=== PATIENT | male | born 1975 | race Caucasian/White ===

== ENCOUNTER 2020-12-16 20:49 | Inpatient (IN) | payer OTHER ==
--- NOTE | 2020-12-16 21:06 | P.CRDCN ---
History of Present Illness History of present illness: HISTORY OF PRESENTING ILLNESS This is a pleasant 45-year-old with past medical history significant for diabetes mellitus type 2, family history of coronary artery disease, tobacco abuse and obesity. Patient denies any previous cardiac history. He states he had been in his usual state of health and then approximate 30 minutes prior to presentation he started developing substernal chest pain, radiating to his left shoulder, shortness breath and therefore presented to [facility]. Initial EKG showed anterolateral ST elevations V2 through V6, 1 and aVL with reciprocal changes. Patient was given aspirin, heparin, nitroglycerin and in fact his chest pain did completely resolve his EKG on transfer did appear improved. Patient was transferred to [facility] for heart catheterization and intervention. He did have a father who of a heart attack in his 50s. He does smoke "too much". He drinks occasional alcohol and no illicit drugs. REVIEW OF SYSTEMS At the time of my exam: CONSTITUTIONAL: Denies fever or chills. CARDIOVASCULAR: +chest pain, no shortness of breath, orthopnea, PND or palpitations. RESPIRATORY: Denies cough. GASTROINTESTINAL: Denies abdominal pain, diarrhea, constipation, nausea or vomiting. MUSCULOSKELETAL: Denies myalgias. NEUROLOGIC: Denies numbness, tingling or weakness. ENDOCRINE: Denies fatigue, weight change, polydipsia or polyurina. GENITOURINARY: Denies burning, hematuria or urgency with micturation. HEMATOLOGIC: Denies history of anemia or bleeding. PHYSICAL EXAMINATION Vital signs reviewed. CONSTITUTIONAL: No apparent distress, obese. HEENT: Head is normocephalic. Pupils are equal, round. Sclerae anicteric. Mucous membranes of the mouth are moist. No JVD. No carotid bruit. CHEST EXAMINATION: Lungs are clear to auscultation. No chest wall tenderness is noted on palpation or with deep breathing. HEART EXAMINATION: Regular rate and rhythm. S1, S2 heard. No murmurs, gallops or rub. ABDOMEN: Soft, nontender. Positive bowel sounds. EXTREMITIES: 2+ peripheral pulses, no lower extremity edema and no calf tenderne ss. NEUROLOGIC EXAMINATION: Patient is awake, alert and oriented x3. ASSESSMENT 1. Anterolateral STEMI, ST elevations have improved 2. Diabetes mellitus type 2 3. Hyperlipidemia 4. Tobacco abuse 5. Family history of coronary artery disease 6. Obesity PLAN Recommend left heart catheterization with possible PCI. Aspirin, heparin drip, check 2-D echo. Tobacco cessation. Past Medical History Past Medical History: No Reported History History of Any Multi-Drug Resistant Organisms: None Reported Past Surgical History: Orthopedic Surgery Past Psychological History: No Psychological Hx Reported Past Alcohol Use History: Occasional Past Drug Use History: None Reported Medications and Allergies Home Medications Medication Instructions Recorded Confirmed Type No Known Home Medications 02/29/16 02/29/16 History Allergies Allergy/AdvReac Type Severity Reaction Status Date / Time No Known Allergies Allergy Verified 02/29/16 13:27
[2020-12-16] MEDS: fentaNYL (PF) 50 MCG/ML 2 ML AMP IVP ONE ×3 (21:08→22:49)
[2020-12-16] MEDS: MIDAZOLAM 2 MG/2 ML VIAL IVP ONE ×2 (21:08→22:14)
[2020-12-16] MEDS ORDERED: fentaNYL (PF) 50 MCG/ML 2 ML AMP ONE ×2 (21:08→23:55)
[2020-12-16] MEDS ORDERED: LIDOCAINE 1% INJ 10MG/ML (20 ML MDV) SQ ONE (21:08)
[2020-12-16] MEDS ORDERED: VERAPAMIL SYRINGE (5 MG/10 ML) INTRAARTER ONE (21:11)
[2020-12-16] MEDS ORDERED: HEPARIN SODIUM 1,000 UN/ML (10ML VL) ONE (21:16)
[2020-12-16] MEDS: HEPARIN SODIUM 1,000 UN/ML (10ML VL) IV ONE ×5 (21:17→23:10)
[2020-12-16] MEDS ORDERED: IV FLUID CONTINUATION 1,000 ML IV ONE (21:18)
[2020-12-16] MEDS ORDERED: NITROGLYCERIN-D5W PMX 50 MG in DEXTROSE/WATER 1 250ML.BAG IV ONE (21:18)
[2020-12-16] MEDS ORDERED: PRASUGREL 10 MG TAB ONE ×2 (21:22)
[2020-12-16] MEDS ORDERED: PRASUGREL 10 MG TAB PO ONE (21:27)
[2020-12-16] MEDS: NITROGLYCERIN 1000MCG/10ML SYRINGE INTRACORON ONE ×3 (21:29→22:59)
[2020-12-16] MEDS ORDERED: IOPAMIDOL-370 125ML BTL INJ ONE ×3 (21:48→23:14)
[2020-12-16 22:07] LABS: Basophils # (A) 0.1 k/uL (0-0.2); Basophils % (A) 1 %; Eosinophils # (A) 0.3 k/uL (0-0.7); Eosinophils % (A) 3 %; HCT 45.4 % (39.0-53.0); HGB 16.1 gm/dL (13.0-17.5); Lymphocytes # (A) 1.6 k/uL (1.0-4.8); Lymphocytes % (A) 16 %; MCH 30.7 pg (25.0-35.0); MCHC 35.6 g/dL (31.0-37.0); MCV 86.3 fL (80.0-100.0); Monocytes # (A) 0.6 k/uL (0-1.0); Monocytes % (A) 6 %; Neutrophils # (A) 7.4 k/uL (1.3-7.7); Neutrophils % (A) 74 %; Platelet Count 258 k/uL (150-450); RBC 5.26 m/uL (4.30-5.90); RDW 12.7 % (11.5-15.5)
[2020-12-16 22:10] LABS: ALT 22 U/L (4-49); AST 25 U/L (17-59); African American GFR (CKD) >90 (>60 ml/min/1.73 sqM); Albumin 3.5 g/dL (3.5-5.0); Alkaline Phosphatase 71 U/L (38-126); Anion Gap 5 mmol/L; Blood Urea Nitrogen 12 mg/dL (9-20); Calcium 8.4 mg/dL (8.4-10.2); Carbon Dioxide 26 mmol/L (22-30); Chloride 100 mmol/L (98-107); Glucose 208 mg/dL (74-99); Non-African American GFR(CKD) >90 (>60 ml/min/1.73 sqM); Potassium 4.2 mmol/L (3.5-5.1); Sodium 131 mmol/L (137-145); Total Bilirubin 0.5 mg/dL (0.2-1.3); Total Protein 6.6 g/dL (6.3-8.2)
[2020-12-16 22:25] LABS: INR 1.1 (<1.2); Partial Thromboplastin Time 92.4 sec (22.0-30.0); Prothrombin Time 11.8 sec (9.0-12.0)
[2020-12-16] MEDS ORDERED: NITROGLYCERIN SL TABS 0.4 MG TAB SUBLINGUAL ONE ×2 (23:16→23:18)
[2020-12-16] MEDS ORDERED: hydrALAZINE HCL 20 MG/ML 1 ML VIAL ONE (23:21)
[2020-12-16] MEDS ORDERED: hydrALAZINE HCL 20 MG/ML 1 ML VIAL IV ONE ×2 (23:23)
--- NOTE | 2020-12-16 23:54 | P.PRCINT ---
Percutaneous Coronary Int. - Percutaneous Coronary Intervention Percutaneous Coronary Intervention: PROCEDURES PERFORMED: Left heart catheterization, bilateral coronary angiography, PCI of mid LAD with overlapping 3.5 x 15mm, 3.0 x 33mm Xience SANDRITA, post dilated with a 4.0 NC balloon. INDICATION: STEMI HISTORY: Patient is a pleasant 45-year-old male with history of hypertension, diabetes mellitus, obesity, tobacco abuse who presented to [facility] with chest pain and was found to have anterior lateral STEMI. He was transferred to [facility] for intervention. CONSENT:I have discussed the risks, benefits and alternative therapies for the above-mentioned procedure and for both sedation/analgesia as well as necessary blood product administration, if indicated, as they pertain to this patient. The patient has indicated understanding and acceptance of the risks and procedures discussed. PROCEDURE: After the risks, benefits and alternatives of the above mentioned procedure explained in detail with the patient, informed consent was obtained. Patient was taken to the catheterization lab and prepped and draped in usual fashion. 1% lidocaine was used to anesthetize the right radial artery. A 6- Colombian sheath was placed in the right radial artery using modified Seldinger technique. Left coronary angiography was performed with a 5-Colombian JL 3.5 catheter and right coronary angiography was performed with a 5-Colombian JR5 catheter in various views. A 5-Colombian FR5 catheter was inserted into the left ventricle and pressure measurements were obtained. The decision was made to intervene on the LAD. A 0.014 BMW wire was advanced into the distal LAD and then a second BMW into the diagonal 1 branch. Balloon angioplasty was performed with a 2.5 x 12 mm balloon to the diagonal 1 branch. There was still diffuse 90% stenosis despite 2 balloon angioplasties. Balloon angioplasty was performed of the LAD lesion with a 3.5 x 12 mm compliant and then 3.5 x 12 mm noncompliant balloon as there was some waist with the compliant balloon. There again was stenosis of the diagonal branch and therefore decision was made to perform to stent approach. A 2.5 x 15 mm Xience SANDRITA was placed at the origin of the diagonal 1 branch overlapping into the LAD. There was more distal disease of the diagonal branch and therefore an additional 2.0 x 22mm Industry stent was placed to the mid diagonal branch. The wire was then removed from the diagonal branch and the origin of the stent was crushed with a 3.5 x 12 mm noncompliant balloon. Next, the crushed stent was crossed with a 0.014 BMW wire and the origin of the stent was ballooned with a 2.0 mm balloon. Next a 3.5 x 15 mm Xience drug eluting stent was placed in the mid LAD. There was some waist and therefore a 4.0 x 8 mm balloon was used to post dilate the midportion of the stent. There was more distal dissection beyond the stent and therefore this was covered with a 3.0 x 28 mm Xience SANDRITA with excellent result. There was no flow noted in the diagonal 1 branch and therefore multiple times for made at wiring the diagonal branch again however unsuccessfully. Given contrast load, radiation dosage eventually the procedure was aborted as patient was doing well without any chest pain. Therefore the wires were pulled and final angiograms were performed. Per intervention there was 95% stenosis of the LAD with THOMAS 2- 3 flow and postintervention there was served percent stenosis and THOMAS-3 flow with no dissection. The diagonal branch was noted to be occluded however felt best treated medically with multiple attempts at preserving diagonal branch made. The right radial sheath was removed and a TR band was placed with hemostasis achieved. The patient tolerated the procedure well. Patient was transported back to the post catheterization holding area in stable condition. Conscious Sedation: Patient was monitored under the direct supervision of vision of myself for conscious sedation using Versed and fentanyl for a total duration of 126 minutes HEMODYNAMICS: LV: 156/2, LVEDP 11 Ao: 164/65 SELECTIVE CORONARY ARTERIOGRAPHY: LEFT MAIN: The left main is a large caliber vessel which bifurcates into the LAD and circumflex. There is no significant stenosis. LEFT ANTERIOR DESCENDING CORONARY ARTERY: LAD is a large caliber vessel which wraps around to the apex. There is a 95% mid LAD stenosis at the level of a small caliber diagonal 1 branch, involving the diagonal branch as well with 95% diagonal 1 stenosis as well. LEFT CIRCUMFLEX CORONARY ARTERY: Left circumflex is a large caliber vessel with mild luminal irregularities. RIGHT CORONARY ARTERY: The right coronary artery is a large caliber vessel which gives off a PDA and PLV branch and is the dominant vessel. There are mild luminal irregularities. FINAL IMPRESSION: 1. CAD as described above with PCI of mid LAD with overlapping 3.5 x 15mm, 3.0 x 33mm Xience SANDRITA, PCI of diagonal 2.5 x 15mm Xience and 2.0 x 22mm Robel SANDRITA. 2. Normal left sided pressures PLAN: 1. Aggressive risk factor modification per most recent ACC/AHA guidelines. 2. Continue dual antiplatelets for 12 months.
[2020-12-16] MEDS ORDERED: fentaNYL (PF) 50 MCG/ML 2 ML AMP IVP ONE (23:57)
[2020-12-16] MEDS ORDERED: MIDAZOLAM 2 MG/2 ML VIAL IVP ONE (23:57)
[2020-12-16] MEDS ORDERED: NITROGLYCERIN SL TABS 0.4 MG TAB SUBLINGUAL PRN (23:59)
[2020-12-16] MEDS ORDERED: MAG HYDROX/AL HYDROX/SIMETH 30 ML CUP PO PRN (23:59)
[2020-12-16] MEDS ORDERED: ZOLPIDEM 5 MG TAB PO PRN (23:59)
[2020-12-16] MEDS ORDERED: ATROPINE SULFATE 0.1 MG/ML 10ML SYRINGE IV PRN (23:59)
[2020-12-16] MEDS ORDERED: RX INFO: IV CONTRAST WAS GIVEN 1 EACH MISC MISCELLANE PRN (23:59)
[2020-12-17 00:40] LABS: Basophils # (A) 0.2 k/uL (0-0.2); Basophils % (A) 1 %; Eosinophils # (A) 0.3 k/uL (0-0.7); Eosinophils % (A) 2 %; HCT 51.6 % (39.0-53.0); HGB 17.4 gm/dL (13.0-17.5); Lymphocytes # (A) 5.3 k/uL (1.0-4.8); Lymphocytes % (A) 28 %; MCH 29.9 pg (25.0-35.0); MCHC 33.8 g/dL (31.0-37.0); MCV 88.5 fL (80.0-100.0); Mean Platelet Volume 6.9; Monocytes # (A) 1.1 k/uL (0-1.0); Monocytes % (A) 6 %; Neutrophils # (A) 11.8 k/uL (1.3-7.7); Neutrophils % (A) 62 %; Platelet Count 280 k/uL (150-450); RBC 5.83 m/uL (4.30-5.90); RDW 12.8 % (11.5-15.5)
[2020-12-17] MEDS ORDERED: LIDOCAINE 1% INJ 10MG/ML (20 ML MDV) ONE (00:40)
[2020-12-17] MEDS ORDERED: VERAPAMIL 2.5 MG/ML 2 ML AMP ONE (00:40)
--- NOTE | 2020-12-17 00:43 | P.PN ---
Progress Note - Text Progress note: Per report from nurse, patient had episode in ICU of VT and then Vfib with Code blue and received Amio, Epinephrine and defibrillation with ROSC. He currently denies any chest pain however he has been somewhat atypical describing his chest pain and cannot recall episode. His EKG shows persistent ST elevations however he had similar EKG at the end of PCI with inability to open a jailed diagonal branch. We will emergently bring patient back to [facility] for LHC. Prognosis guarded, continue BBlocker and Amiodarone drip. Nahum Ibarra, DO
--- NOTE | 2020-12-17 00:50 | P.HPIM ---
History of Present Illness H&P Date: 12/16/20 Chief Complaint: chest pain 45 year old male with obesity , DM, hyperlipidemia , and premature CAD in his father who of heart attack at age of 50 patient states he was at his baseline status of health up until today. when he suddenly experienced crushing central chest pain radiating to his left arm. associated with SOB, feeling nauseous , and diaphoretic within 30 min he was taken to [facility] , EKG showed STEMI V2 -V6 , patient has no personal history of CAD, but reports family history of premature CAD in his father who at age 50. patient risk factors, include smoking, obesity , DM, and family history patient symptoms improved after ASA, heparin and nitro. he was sent in here for intervention . left heart cath done through right radial artery access , and stents were inserted in mid LAD and diagonal patient otherwise denies any fever, chills, trauma to chest, abd pain , changes in his bowel or urinary habits, denies any gi bleeding Review of Systems Pertinent positives as noted in HPI. All other systems were reviewed and are negative Past Medical History Past Medical History: No Reported History History of Any Multi-Drug Resistant Organisms: None Reported Past Surgical History: Orthopedic Surgery Past Psychological History: No Psychological Hx Reported Past Alcohol Use History: Occasional Past Drug Use History: None Reported - Past Family History family Additional Family Medical History / Comment(s): premature CAD in his father at 50 of heart attack Medications and Allergies Home Medications Medication Instructions Recorded Confirmed Type No Known Home Medications 02/29/16 02/29/16 History Allergies Allergy/AdvReac Type Severity Reaction Status Date / Time No Known Allergies Allergy Verified 02/29/16 13:27 Physical Exam Vitals: Intake and Output 12/16/20 12/16/20 12/16/20 06:59 14:59 22:59 Other: Weight 123 kg Constitutional: No acute distress, conversant, pleasant Eyes: Anicteric sclerae, moist conjunctiva, Pupils equal round reactive to light ENMT: NC/AT Oropharynx clear, no erythema, or exudates Neck: Supple, FROM, no masses, or JVD No carotid bruits No thyromegaly Lungs: Clear to auscultation Clear to percussion Normal respiratory effort, no accessory muscle use Cardiovascular: Heart regular in rate and rhythm, No murmurs, gallops, or rubs No peripheral edema Abdominal: Soft Nontender, no guarding, rebound or rigidity Abdomen moving with respiration Normoactive bowel sounds No hepatomegaly, No splenomegaly No palpable mass No abdominal wall hernia noted Skin: Normal temperature, tone, texture, turgor No induration No subcutaneous nodules No rash, lesions No ulcers Extremities: No digital cyanosis No clubbing Pedal pulses intact and symmetrical Radial pulses intact and symmetrical No calf tenderness Psychiatric: Alert and oriented to person, place and time Appropriate affect fair judgement Neuro Muscles Strength 5/5 in all 4 extremities Sensation to light touch grossly present throughout Cranial nerves II-XII grossly intact No focal sensory deficits Lymphatics: no palpable cervical or supraclavicular , or inguinal lymph nodes Results CBC & Chem 7: 12/16/20 21:58 12/16/20 21:58 Assessment and Plan Assessment: STEMI s/p stents dual antiplatelets ICU care quit smoking monitor vital sings cardiac cath rn follow up labs statin , BB check echocardiogram cardiology following life style modification DM insulin sliding scale check A1C hyperlipidemia , statin Obesity life style modification CODE STATUS:full code DVT prophylaxis: heparin sc tid Discussed with: Patient, ER, RN Anticipated length of stay > than [address]: home A total of 60 minutes was spent on the care of this complex patient more than 50% of the time was spent in counseling and care coordination.
[2020-12-17] MEDS ORDERED: LIDOCAINE 1% INJ 10MG/ML (20 ML MDV) SQ ONE (00:51)
[2020-12-17] MEDS ORDERED: VERAPAMIL SYRINGE (5 MG/10 ML) INTRAARTER ONE (00:53)
--- NOTE | 2020-12-17 00:59 | P.EN ---
CODE blue note please refer to paper chart for exact details of sequence of events patient experience a cardiopulmonary arrest secondary to vfib. he was shocked twice, given epi and amiodarone bolus . successful ROSC achieved. cardiology notified and patient was rushed back to the cytogenetics laboratory manager patient was not intubated as he regained consciousness and was fully awake, following commands and answering questions appropriately . patient Jennifer was able to see the patient after the code in his room and was updated. I accompanied the patient to the cytogenetics laboratory manager. check labs, basic metabolic panel and magnesium normal saline bolus 1 L cardiology updated assessment , vfib cardiopulmonary arrest with successful ROSC STEMI s/p stents 30 minutes were spent in critical care time in the care of this complex patient
[2020-12-17 01:28] LABS: ALT 34 U/L (4-49); AST 44 U/L (17-59); African American GFR (CKD) >90 (>60 ml/min/1.73 sqM); Alkaline Phosphatase 85 U/L (38-126); Anion Gap 13 mmol/L; Blood Urea Nitrogen 12 mg/dL (9-20); Calcium 9.1 mg/dL (8.4-10.2); Carbon Dioxide 19 mmol/L (22-30); Chloride 103 mmol/L (98-107); Glucose 253 mg/dL (74-99); Magnesium 2.3 mg/dL (1.6-2.3); Non-African American GFR(CKD) >90 (>60 ml/min/1.73 sqM); Potassium 3.8 mmol/L (3.5-5.1); Sodium 135 mmol/L (137-145); Total Bilirubin 0.6 mg/dL (0.2-1.3); Total Protein 7.1 g/dL (6.3-8.2)
[2020-12-17] MEDS ORDERED: IV FLUID CONTINUATION 1,000 ML IV ONE (01:28)
[2020-12-17] MEDS ORDERED: IV FLUID CONTINUATION 200 ML IV ONE (01:30)
[2020-12-17] MEDS ORDERED: IOPAMIDOL-370 125ML BTL INJ ONE (01:35)
[2020-12-17] MEDS ORDERED: TIROFIBAN BOLUS 12.5MG/250 ML BAG IV ONE (01:40)
[2020-12-17] MEDS ORDERED: TIROFIBAN 12.5MG-250ML NS 250 ML IV ONE (01:44)
[2020-12-17] MEDS ORDERED: RX INFO: IV CONTRAST WAS GIVEN 1 EACH MISC MISCELLANE PRN (01:55)
--- NOTE | 2020-12-17 01:55 | P.PRCINT ---
Percutaneous Coronary Int. - Percutaneous Coronary Intervention Percutaneous Coronary Intervention: PROCEDURES PERFORMED: Bilateral coronary angiography, IVUS LAD, PCI of mid LAD with a 4.0 x 12 mm Xience SANDRITA INDICATION: VFib arrest HISTORY: Patient is a pleasant 45-year-old male with history of diabetes mellitus type II, hyperlipidemia, tobacco abuse with presented with chest pain and found to have anterior lateral STEMI and therefore was transferred from [facility] to [facility] patient underwent heart catheterization which showed bifurcation mid LAD and diagonal 95% stenosis 12/16/2020. He underwent angioplasty of the diagonal branch and eventual to stent approach with successful stenting of the LAD however the diagonal branch was compromised and unable to rewire despite multiple attempts. Therefore patient did have some lateral ST elevations throughout the case. He was transferred to ICU and unfortunately underwent ventricular tachycardia/V. fib arrest with successful brief CPR, epinephrine and cardioversion. Patient was not having any specific chest pain and stated he "felt fine" however recommended urgent catheterization to assess. CONSENT:I have discussed the risks, benefits and alternative therapies for the above-mentioned procedure and for both sedation/analgesia as well as necessary blood product administration, if indicated, as they pertain to this patient. The patient has indicated understanding and acceptance of the risks and procedures discussed. PROCEDURE: After the risks, benefits and alternatives of the above mentioned procedure explained in detail with the patient, informed consent was obtained. Patient was taken to the catheterization lab and prepped and draped in usual fashion. 1% lidocaine was used to anesthetize the left radial artery. A 6- Somali sheath was placed in the right radial artery using modified Seldinger technique. Left coronary angiography was performed with a 5-Somali JL4.0 catheter and right coronary angiography was performed with a 5-Somali JR5 catheter in various views. The LAD stent was noted to be occluded and therefore intervention was recommended. The left main was engaged with a 6-Somali CLS 4.0 catheter. A 0.014 BMW wire was used to cross the lesion and placed in the distal LAD. The stent was predilated with a 3.0 balloon. Next IVUS was performed which showed very mild stent malposition of the mid to distal LAD stent and questionable small proximal edge dissection. Therefore a 4.0 x 12 mm Xience SANDRITA was placed proximally. The remainder of the stent was postdilated with a 3.5 x 12 mm noncompliant balloon. Post angioplasty and stenting IVUS was performed which showed excellent stent apposition without any dissection. Preintervention there was 99% stenosis with THOMAS 0 flow and post intervention there was 0% stenosis and THOMAS 3 flow. The left radial sheath was removed and a TR band was placed with hemostasis achieved. The patient tolerated the procedure well. Patient was transported back to the post catheterization holding area in stable condition. Conscious Sedation: Patient was monitored under the direct supervision of vision of myself for conscious sedation using Versed and fentanyl for a total duration of 48 minutes HEMODYNAMICS: Ao 146/78 SELECTIVE CORONARY ARTERIOGRAPHY: LEFT MAIN: The left main is a large caliber vessel which bifurcates into the LAD and circumflex. There is no significant stenosis. LEFT ANTERIOR DESCENDING CORONARY ARTERY: LAD is a large caliber vessel which wraps around to the apex. There is a long mid LAD stent with instent thrombosis resulting in 99% stenosis. The diagonal 1 stent is 100% occluded. LEFT CIRCUMFLEX CORONARY ARTERY: Left circumflex is a large caliber vessel. There are mild luminal irregularities. RIGHT CORONARY ARTERY: The right coronary artery is a large caliber vessel which gives off a PDA and PLV branch and is the dominant vessel. There are mild luminal irregularities. FINAL IMPRESSION: 1. Acute LAD stent thrombosis s/p successful PCI of proximal edge of mid LAD stent with a 4.0 x 12mm Xience SANDRITA PLAN: 1. Aggressive risk factor modification per most recent ACC/AHA guidelines. 2. Continue dual antiplatelets for 12 months. 3. Aggrastat drip for 12 hrs, amiodarone drip, BBlocker.
[2020-12-17] MEDS ORDERED: AMIODARONE 360 MG in DEXTROSE 5% IN WATER 200 ML IV ONE ×2 (02:00)
[2020-12-17 02:05] LABS: Glucose,Whole Blood 230 mg/dL (75-99)
[2020-12-17] MEDS: SODIUM CHLORIDE 0.9% 1,000 ML IV SCH ×2 (02:45→20:24)
[2020-12-17] MEDS: TIROFIBAN 12.5MG-250ML NS 250 ML IV SCH ×2 (02:46→10:15)
[2020-12-17] MEDS: METOPROLOL TARTRATE 25 MG TAB PO SCH ×3 (03:08→20:24)
[2020-12-17] MEDS ORDERED: MORPHINE SULFATE 4 MG/ML SYRINGE IVP PRN (04:46)
[2020-12-17 05:15] LABS: Basophils # (A) 0.1 k/uL (0-0.2); Basophils % (A) 0 %; Eosinophils # (A) 0.1 k/uL (0-0.7); Eosinophils % (A) 1 %; HCT 48.8 % (39.0-53.0); HGB 16.3 gm/dL (13.0-17.5); Lymphocytes # (A) 1.9 k/uL (1.0-4.8); Lymphocytes % (A) 11 %; MCH 28.9 pg (25.0-35.0); MCHC 33.3 g/dL (31.0-37.0); MCV 86.9 fL (80.0-100.0); Mean Platelet Volume 6.9; Monocytes # (A) 0.7 k/uL (0-1.0); Monocytes % (A) 4 %; Neutrophils # (A) 14.6 k/uL (1.3-7.7); Neutrophils % (A) 84 %; Platelet Count 304 k/uL (150-450); RBC 5.62 m/uL (4.30-5.90); RDW 13.4 % (11.5-15.5); WBC 17.5 k/uL (3.8-10.6)
[2020-12-17 05:29] LABS: African American GFR (CKD) >90 (>60 ml/min/1.73 sqM); Anion Gap 8 mmol/L; Blood Urea Nitrogen 9 mg/dL (9-20); Calcium 8.9 mg/dL (8.4-10.2); Carbon Dioxide 24 mmol/L (22-30); Chloride 103 mmol/L (98-107); Glucose 224 mg/dL (74-99); Non-African American GFR(CKD) >90 (>60 ml/min/1.73 sqM); Potassium 4.3 mmol/L (3.5-5.1); Sodium 135 mmol/L (137-145)
--- NOTE | 2020-12-17 06:42 | XR ---
EXAMINATION TYPE: XR chest 1V portable DATE OF EXAM: 12/17/2020 COMPARISON: 02/29/2016 HISTORY: Post-CPR TECHNIQUE: Single frontal view of the chest is obtained. FINDINGS: There is diffuse mild interstitial opacity possibly reflecting mild interstitial edema. The re is no consolidative or masslike opacity. There is no pleural effusion or pneumothorax. Heart size is normal. The mediastinum and hilum are unr emarkable. The osseous structures are intact. IMPRESSION: Mild interstitial prominence which possibly reflects mild interstitial edema. Clinical correlation fo llow-up is recommended..
[2020-12-17 07:07] LABS: Glucose,Whole Blood 175 mg/dL (75-99)
[2020-12-17] MEDS: INSULIN ASPART (NovoLOG) 100 UNIT/ML VIAL SQ SCH ×4 (07:07→20:24)
[2020-12-17] MEDS: AMIODARONE 450 MG in DEXTROSE 5% IN WATER 250 ML IV SCH ×4 (08:42→23:04)
[2020-12-17] MEDS: PRASUGREL 10 MG TAB PO SCH (10:12)
[2020-12-17] MEDS: ASPIRIN 81 MG PO SCH (10:12)
[2020-12-17] MEDS: HEPARIN SODIUM,PORCINE/PF 5,000 UNIT/0.5 ML SYRINGE SQ SCH ×2 (10:12→20:24)
[2020-12-17 11:15] LABS: Glucose,Whole Blood 203 mg/dL (75-99)
--- NOTE | 2020-12-17 11:59 | ECHOF ---
Referral Reason:STEMI, V fib MEASUREMENTS -------- HEIGHT: 167.6 cm WEIGHT: 122.9 kg BP: IVSd: 1.0 cm (0.6 - 1.1) LVIDd: 4.8 cm (3.9 - 5.3) LVPWd: 1.1 cm (0.6 - 1.1) IVSs: 0.9 cm LVIDs: 3.8 cm LVPWs: 1.0 cm LAESV Index (A-L): 16.07 ml/m Ao Diam: 3.1 cm (2.0 - 3.7) AV Cusp: 1.7 cm (1.5 - 2.6) LA Diam: 4.1 cm (2.7 - 3.8) MV EXCURSION: 23.970 mm (> 18.000) MV EF SLOPE: 133 mm/s (70 - 150) EPSS: 1.7 cm MV E Hernan: 0.93 m/s MV DecT: 199 ms MV A Hernan: 1.09 m/s MV E/A Ratio: 0.85 RAP: 5.00 mmHg RVSP: 10.09 mmHg FINDINGS -------- This was a technically difficult study with suboptimal views. The left ventricular size is normal. Left ventricular wall thickness is normal. Overall left vent ricular systolic function is moderately impaired with, an EF between 35 - 40 %. Normal LAP Grade 1 Diastolic Dysfunction. Apical anterior LV wall motion is hypokinetic. Apical lateral LV wall mot ion is hypokinetic. Apical inferior LV wall motion is hypokinetic. Apical septum LV wall motion is hypokinetic. The right ventricle is normal in size. Normal LA size by volume 22+/-6 ml/m2. The right atrial size is normal. Lumason used The aortic valve was not well visualized. The mitral valve is normal. Mild mitral regurgitation is present. The tricuspid valve appears structurally normal. Trace tricuspid regurgitation present. Right neftaly tricular systolic pressure is normal at < 35 mmHg. There is no pulmonic regurgitation present. The aortic root size is normal. IVC Not well visulized. There is no pericardial effusion. CONCLUSIONS -------- 1. The left ventricular size is normal. 2. Left ventricular wall thickness is normal. 3. Overall left ventricular systolic function is moderately impaired with, an EF between 35 - 40 %. 4. Normal LAP Grade 1 Diastolic Dysfunction. 5. Apical anterior LV wall motion is hypokinetic. 6. Apical lateral LV wall motion is hypokinetic. 7. Apical inferior LV wall motion is hypokinetic. 8. Apical septum LV wall motion is hypokinetic. 9. Mild mitral regurgitation is present. 10. Trace tricuspid regurgitation present. 11. There is no pericardial effusion. FUEL QUALITY TECH: Jen Bateman RDCS
--- NOTE | 2020-12-17 12:09 | P.PN ---
Subjective Progress Note Date: 12/17/20 Principal diagnosis: chest pain Bennett is a 45 yo male DM, HLD, and obesity who presented from [facility] due to STEMI in V2-V6. 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 He was transferred to the ICU and had a V fib arrest shocked X 2, and epi with ROSC. He was started on amio gtt and taken back to the slab miller operator where he was noted to have acute instent thrombosis and was started on aggrastat. He return to the ICU and amio gtt was continued. Of note patient does not have insurance as he is selft employed. He has been getting his metformin from urgent care. Patient seen and examined at bedside. He reports pain with movement in his ch est. No shrotness of breath, no pain withdeep inspiration. Blood sugar at home 120-150. General: non toxic, no distress, appears at stated age, Obese Derm: warm, dry Head: atraumatic, normocephalic, symmetric Eyes: EOMI, no lid lag, anicteric sclera Mouth: no lip lesion, mucus membranes moist Cardiovascular: S1S2 reg, no murmur, positive posterior tibial pulse bilateral, Lungs: Decreased bs bilateral, no rhonchi, no rales , no accessory muscle use Abdominal: soft, nontender to palpation, no guarding, no appreciable organomegaly Ext: no gross muscle atrophy, no edema, no contractures Neuro: CN II-XI grossly intact, no focal neuro deficits Psych: Alert, oriented, appropriate affect ST segment elevated myocardial infarction status post PCI to the LAD, in-stent thrombosis, V. fib arrest - On Aggrastat -Amiodarone -Metoprolol, lisinopril start in a.m. -Aspirin -Effient -Statin Diabetes mellitus type 2, well controlled on metformin -Hold metformin due to recent contrast dye -Sliding-scale insulin -Check an A1c HTN - follow BP - start lisinopril in AM - metoprolol Dyslipidemia -Statin -Check lipid profile Leukocytosis - likely reactive - repeat CBC in AM Obesity with BMI 43.8 -Structured outpatient weight loss DVT prophylaxis: heparin Discussed with: Patient, nursing Anticipated discharge: 3-[address]: home A total of 35 minutes was spent on the care of this complex patient more than 50% of the time was spent in counseling and care coordination. Objective - Vital Signs Vital signs: Vital Signs Temp 97.9 F 12/17/20 08:00 Pulse 69 12/17/20 11:00 Resp 13 12/17/20 11:00 BP 163/88 12/17/20 11:00 Pulse Ox 94 L 12/17/20 11:00 Intake & Output 12/16/20 12/17/20 12/17/20 18:59 06:59 18:59 Intake Total 735 605 Output Total 1400 500 Balance -665 105 Weight 123.1 kg Intake: IV 735 375 .9 400 375 Oral 230 Output: Urine 1400 500 Other: Voiding Method Urinal # Voids 1 1 - Labs CBC & Chem 7: 12/17/20 04:54 12/17/20 04:54 Labs: Abnormal Lab Results - Last 24 Hours (Table) 12/16/20 12/16/20 12/16/20 Range/Units 21:58 21:58 21:58 WBC (3.8-10.6) k/uL Neutrophils # (1.3-7.7) k/uL Lymphocytes # (1.0-4.8) k/uL Monocytes # (0-1.0) k/uL APTT 92.4 H (22.0-30.0) sec Sodium 131 L (137-145) mmol/L Carbon Dioxide (22-30) mmol/L Creatinine (0.66-1.25) mg/dL Glucose 208 H (74-99) mg/dL POC Glucose (mg/dL) (75-99) mg/dL Troponin I 0.677 H* (0.000-0.034) ng/mL 12/17/20 12/17/20 12/17/20 Range/Units 00:30 00:30 02:04 WBC 19.0 H (3.8-10.6) k/uL Neutrophils # 11.8 H (1.3-7.7) k/uL Lymphocytes # 5.3 H (1.0-4.8) k/uL Monocytes # 1.1 H (0-1.0) k/uL APTT (22.0-30.0) sec Sodium 135 L (137-145) mmol/L Carbon Dioxide 19 L (22-30) mmol/L Creatinine (0.66-1.25) mg/dL Glucose 253 H (74-99) mg/dL POC Glucose (mg/dL) 230 H (75-99) mg/dL Troponin I (0.000-0.034) ng/mL 12/17/20 12/17/20 12/17/20 Range/Units 04:54 04:54 04:54 WBC 17.5 H (3.8-10.6) k/uL Neutrophils # 14.6 H (1.3-7.7) k/uL Lymphocytes # (1.0-4.8) k/uL Monocytes # (0-1.0) k/uL APTT (22.0-30.0) sec Sodium 135 L (137-145) mmol/L Carbon Dioxide (22-30) mmol/L Creatinine 0.60 L (0.66-1.25) mg/dL Glucose 224 H (74-99) mg/dL POC Glucose (mg/dL) (75-99) mg/dL Troponin I 2.110 H* (0.000-0.034) ng/mL 12/17/20 12/17/20 Range/Units 07:05 11:14 WBC (3.8-10.6) k/uL Neutrophils # (1.3-7.7) k/uL Lymphocytes # (1.0-4.8) k/uL Monocytes # (0-1.0) k/uL APTT (22.0-30.0) sec Sodium (137-145) mmol/L Carbon Dioxide (22-30) mmol/L Creatinine (0.66-1.25) mg/dL Glucose (74-99) mg/dL POC Glucose (mg/dL) 175 H 203 H (75-99) mg/dL Troponin I (0.000-0.034) ng/mL
[2020-12-17 12:22] VITALS: BMI 43.8
[2020-12-17 14:50] LABS: Hemoglobin A1C 7.8 % (4.0-6.0)
--- NOTE | 2020-12-17 15:56 | P.PN ---
Subjective Progress Note Date: 12/17/20 This patient was admitted with acute anterior wall myocardial infarction. Had cardiac catheterization and stent placement of the LAD. That seemed to a bifurcating lesion of the diagonal but subsequently patient had a cardiac arrest with ventricular tachycardia and fibrillation. He required CPR and cardi oversion and epinephrine. Subsequent cardiac catheterization showed acute thrombosis of the stent. Patient had repeat intervention. Patient is alert and oriented. Doesn't appear to be in acute distress. Patient had procedure from the both wrists. Puncture site seemed to be stable. Lungs are clear. Heart is regular. He is on IV amiodarone drip. His echo Cardigan showed an ejection fraction of 35-40%. Anteroapical hypokinesia noted and anteroseptal. We'll continue current medical therapy with beta blockers, SAVANNAH inhibitor. I will add small dose of Aldactone. Increase activity as tolerated. Further recommendations depend upon clinical course. May require LifeVest before discharge. Also may continue by mouth amiodarone Objective - Vital Signs Vital signs: Vital Signs Temp 97.9 F 12/17/20 08:00 Pulse 69 12/17/20 11:00 Resp 13 12/17/20 11:00 BP 163/88 12/17/20 11:00 Pulse Ox 94 L 12/17/20 11:00 Intake & Output 12/16/20 12/17/20 12/17/20 18:59 06:59 18:59 Intake Total 735 605 Output Total 1400 500 Balance -665 105 Weight 123.1 kg 123.1 kg Intake: IV 735 375 .9 400 375 Oral 230 Output: Urine 1400 500 Other: Voiding Method Urinal # Voids 1 1 - Exam GENERAL EXAM: Patient is alert and oriented and doesn't appear to be in any acute distress HEENT: Normocephalic. Normal reaction of pupils, equal size, normal range of extraocular motion. No erythema or exudates in the throat. NECK: No masses, no nuchal rigidity. CHEST: No chest wall deformity. LUNGS: Equal air entry with no crackles or wheeze. HEART: S1 and S2 normal with no audible mumurs or gallops. Regular rhythm, femorals equal on both sides.. ABDOMEN: No hepatosplenomegaly, normal bowel sounds, no guarding or rigidity. SKIN: No rashes CENTRAL NERVOUS SYSTEM: No focal deficits. EXTREMITIES: No cyanosis, clubbing or edema. - Labs CBC & Chem 7: 12/17/20 04:54 12/17/20 04:54 Labs: Abnormal Lab Results - Last 24 Hours (Table) 12/16/20 12/16/20 12/16/20 Range/Units 21:58 21:58 21:58 WBC (3.8-10.6) k/uL Neutrophils # (1.3-7.7) k/uL Lymphocytes # (1.0-4.8) k/uL Monocytes # (0-1.0) k/uL APTT 92.4 H (22.0-30.0) sec Sodium 131 L (137-145) mmol/L Carbon Dioxide (22-30) mmol/L Creatinine (0.66-1.25) mg/dL Glucose 208 H (74-99) mg/dL POC Glucose (mg/dL) (75-99) mg/dL Hemoglobin A1c (4.0-6.0) % Troponin I 0.677 H* (0.000-0.034) ng/mL 12/17/20 12/17/20 12/17/20 Range/Units 00:30 00:30 02:04 WBC 19.0 H (3.8-10.6) k/uL Neutrophils # 11.8 H (1.3-7.7) k/uL Lymphocytes # 5.3 H (1.0-4.8) k/uL Monocytes # 1.1 H (0-1.0) k/uL APTT (22.0-30.0) sec Sodium 135 L (137-145) mmol/L Carbon Dioxide 19 L (22-30) mmol/L Creatinine (0.66-1.25) mg/dL Glucose 253 H (74-99) mg/dL POC Glucose (mg/dL) 230 H (75-99) mg/dL Hemoglobin A1c (4.0-6.0) % Troponin I (0.000-0.034) ng/mL 12/17/20 12/17/20 12/17/20 Range/Units 04:54 04:54 04:54 WBC 17.5 H (3.8-10.6) k/uL Neutrophils # 14.6 H (1.3-7.7) k/uL Lymphocytes # (1.0-4.8) k/uL Monocytes # (0-1.0) k/uL APTT (22.0-30.0) sec Sodium 135 L (137-145) mmol/L Carbon Dioxide (22-30) mmol/L Creatinine 0.60 L (0.66-1.25) mg/dL Glucose 224 H (74-99) mg/dL POC Glucose (mg/dL) (75-99) mg/dL Hemoglobin A1c 7.8 H (4.0-6.0) % Troponin I (0.000-0.034) ng/mL 12/17/20 12/17/20 12/17/20 Range/Units 04:54 07:05 11:14 WBC (3.8-10.6) k/uL Neutrophils # (1.3-7.7) k/uL Lymphocytes # (1.0-4.8) k/uL Monocytes # (0-1.0) k/uL APTT (22.0-30.0) sec Sodium (137-145) mmol/L Carbon Dioxide (22-30) mmol/L Creatinine (0.66-1.25) mg/dL Glucose (74-99) mg/dL POC Glucose (mg/dL) 175 H 203 H (75-99) mg/dL Hemoglobin A1c (4.0-6.0) % Troponin I 2.110 H* (0.000-0.034) ng/mL Assessment and Plan (1) Cardiac arrest Current Visit: Yes Status: Acute Code(s): I46.9 - CARDIAC ARREST, CAUSE UNSPECIFIED SNOMED Code(s): 673370950 (2) STEMI (ST elevation myocardial infarction) Current Visit: Yes Status: Acute Code(s): I21.3 - ST ELEVATION (STEMI) MYOCARDIAL INFARCTION OF [facility] SITE SNOMED Code(s): 57227761 (3) Coronary stent thrombosis Current Visit: Yes Status: Acute Code(s): T82.867A - THROMBOSIS DUE TO CARDIAC PROSTH DEV/GRFT, INITIAL ENCOUNTER SNOMED Code(s): 867039708 (4) Cardiomyopathy Current Visit: Yes Status: Acute Code(s): I42.9 - CARDIOMYOPATHY, UNSPECIFIED SNOMED Code(s): 43147645 Plan: Continue current medical therapy. Start her small dose of Aldactone. Increase activity. Further recommendations depend upon clinical course
[2020-12-17] MEDS: HYDROcodone/APAP 5-325MG 1 EACH TAB PO PRN (16:22)
[2020-12-17 16:46] LABS: Glucose,Whole Blood 222 mg/dL (75-99)
[2020-12-17 20:21] LABS: Glucose,Whole Blood 199 mg/dL (75-99)
[2020-12-17] MEDS: ATORVASTATIN 80 MG TAB PO SCH (20:24)
[2020-12-18] MEDS: SODIUM CHLORIDE 0.9% 1,000 ML IV SCH (03:01)
[2020-12-18 04:05] LABS: HCT 47.8 % (39.0-53.0); HGB 16.1 gm/dL (13.0-17.5); MCH 29.3 pg (25.0-35.0); MCHC 33.6 g/dL (31.0-37.0); MCV 87.2 fL (80.0-100.0); Mean Platelet Volume 7.1; Platelet Count 260 k/uL (150-450); RBC 5.49 m/uL (4.30-5.90); RDW 12.9 % (11.5-15.5); WBC 14.7 k/uL (3.8-10.6)
[2020-12-18 04:20] LABS: African American GFR (CKD) >90 (>60 ml/min/1.73 sqM); Anion Gap 4 mmol/L; Blood Urea Nitrogen 7 mg/dL (9-20); Calcium 8.9 mg/dL (8.4-10.2); Carbon Dioxide 27 mmol/L (22-30); Chloride 103 mmol/L (98-107); Cholesterol 186 mg/dL (<200); Glucose 165 mg/dL (74-99); HDL Cholesterol 35 mg/dL (40-60); LDL Cholesterol,Calculated 118 mg/dL (0-99); Non-African American GFR(CKD) >90 (>60 ml/min/1.73 sqM); Potassium 4.4 mmol/L (3.5-5.1); Sodium 134 mmol/L (137-145); Triglycerides 167 mg/dL (<150)
[2020-12-18 06:47] LABS: Glucose,Whole Blood 171 mg/dL (75-99)
[2020-12-18] MEDS: INSULIN ASPART (NovoLOG) 100 UNIT/ML VIAL SQ SCH ×4 (06:51→21:01)
[2020-12-18] MEDS: ASPIRIN 81 MG PO SCH (08:59)
[2020-12-18] MEDS: HEPARIN SODIUM,PORCINE/PF 5,000 UNIT/0.5 ML SYRINGE SQ SCH ×2 (08:59→21:00)
[2020-12-18] MEDS: PRASUGREL 10 MG TAB PO SCH (09:00)
[2020-12-18] MEDS: METOPROLOL TARTRATE 50 MG TAB PO SCH ×2 (09:00→21:00)
[2020-12-18] MEDS: lisinopriL 10 MG TAB PO SCH (09:00)
[2020-12-18] MEDS: SPIRONOLACTONE 25 MG TAB PO SCH (09:00)
[2020-12-18] MEDS ORDERED: lisinopriL 5 MG TAB PO SCH (09:00)
[2020-12-18] MEDS: HYDROcodone/APAP 5-325MG 1 EACH TAB PO PRN (09:13)
[2020-12-18 11:59] LABS: Glucose,Whole Blood 168 mg/dL (75-99)
--- NOTE | 2020-12-18 14:35 | P.PN ---
Subjective Progress Note Date: 12/18/20 (dleayed charting seen at 1030) Principal diagnosis: chest pain Bennett is a 45 yo male DM, HLD, and obesity who presented from [facility] due to STEMI in V2-V6. 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 He was transferred to the ICU and had a V fib arrest shocked X 2, and epi with ROSC. He was started on amio gtt and taken back to the cath l ab where he was noted to have acute in stent thrombosis and was started on aggrastat. He return to the ICU and amio gtt was continued. He continue to do well and complete the amio gtt and aggrastat. His echo showed diffuse hypokinesis with EF 35-40% and he was started on metoprolol, lisinopril, and aldactone. Of note patient does not have insurance as he is selft employed. He has been getting his metformin from urgent care. Patient seen and examined at bedside. He continues to have pain with movement in his chest, continues to have some pain with coughing, states he is now starting to break up some black and green stuff from his lungs now that he has been away from smoking. He denies any overt chest discomfort. He denies any shortness of breath. No nausea or vomiting though his appetite is poor. General: non toxic, no distress, appears at stated age, Obese Derm: warm, dry Head: atraumatic, normocephalic, symmetric Eyes: EOMI, no lid lag, anicteric sclera Mouth: no lip lesion, mucus membranes moist Cardiovascular: S1S2 reg, no murmur, positive posterior tibial pulse bilateral, Lungs: Decreased bs bilateral, no rhonchi, no rales , no accessory muscle use Abdominal: soft, nontender to palpation, no guarding, no appreciable organomegaly Ext: no gross muscle atrophy, trace edema, no contractures Neuro: CN II-XI grossly intact, no focal neuro deficits Psych: Alert, oriented, appropriate affect ST segment elevated myocardial infarction status post PCI to the LAD, in-stent thrombosis, V. fib arrest, ischemic cardiomyopathy - Status post Aggrastat and Amiodarone infusions -Metoprolol, lisinopril, Aldactone -Aspirin -Effient -Statin -Cardiology recs: May need LifeVest Diabetes mellitus type 2, well controlled on metformin -Hold metformin due to recent contrast dye -Sliding-scale insulin -A1c 7.8 HTN - follow BP - Lisinopril - metoprolol Dyslipidemia -Statin Leukocytosis, down trending - likely reactive - repeat CBC in AM Obesity with BMI 43.8 -Structured outpatient weight loss Social stressors - no insurance DVT prophylaxis: heparin Discussed with: Patient, nursing Anticipated discharge: [address]: home A total of 35 minutes was spent on the care of this complex patient more than 50% of the time was spent in counseling and care coordination. Objective - Vital Signs Vital signs: Vital Signs Temp 99.5 F 12/18/20 13:00 Pulse 84 12/18/20 13:00 Resp 18 12/18/20 13:00 BP 140/84 12/18/20 13:00 Pulse Ox 96 12/18/20 13:00 Intake & Output 12/17/20 12/18/20 12/18/20 18:59 06:59 18:59 Intake Total 1130 1139.449 225 Output Total 1000 600 200 Balance 130 539.449 25 Weight 123.1 kg 121.5 kg Intake: IV 900 900 225 .9 900 900 225 Intake, IV Titration 239.449 Amount Amiodarone 450 mg In 239.449 Dextrose 5% in Water 250 ml @ 0.5 MG/MIN 16.667 mls/hr IV .Q15H [facility] Rx#: [id number] Oral 230 Output: Urine 1000 600 200 Other: Voiding Method Toilet Toilet Toilet # Voids 1 1 1 # Bowel Movements 1 1 - Labs CBC & Chem 7: 12/18/20 02:55 12/18/20 02:55 Labs: Abnormal Lab Results - Last 24 Hours (Table) 12/17/20 12/17/20 12/17/20 Range/Units 04:54 16:44 20:20 WBC (3.8-10.6) k/uL Sodium (137-145) mmol/L BUN (9-20) mg/dL Glucose (74-99) mg/dL POC Glucose (mg/dL) 222 H 199 H (75-99) mg/dL Hemoglobin A1c 7.8 H (4.0-6.0) % Triglycerides (<150) mg/dL LDL Cholesterol, Calc (0-99) mg/dL HDL Cholesterol (40-60) mg/dL 12/18/20 12/18/20 12/18/20 Range/Units 02:55 02:55 06:46 WBC 14.7 H (3.8-10.6) k/uL Sodium 134 L (137-145) mmol/L BUN 7 L (9-20) mg/dL Glucose 165 H (74-99) mg/dL POC Glucose (mg/dL) 171 H (75-99) mg/dL Hemoglobin A1c (4.0-6.0) % Triglycerides 167 H (<150) mg/dL LDL Cholesterol, Calc 118 H (0-99) mg/dL HDL Cholesterol 35 L (40-60) mg/dL 12/18/20 Range/Units 11:48 WBC (3.8-10.6) k/uL Sodium (137-145) mmol/L BUN (9-20) mg/dL Glucose (74-99) mg/dL POC Glucose (mg/dL) 168 H (75-99) mg/dL Hemoglobin A1c (4.0-6.0) % Triglycerides (<150) mg/dL LDL Cholesterol, Calc (0-99) mg/dL HDL Cholesterol (40-60) mg/dL
[2020-12-18 17:02] LABS: Glucose,Whole Blood 153 mg/dL (75-99)
--- NOTE | 2020-12-18 18:35 | P.PN ---
Subjective Progress Note Date: 12/18/20 This patient was admitted with acute anterior wall myocardial infarction. Had cardiac catheterization and stent placement of the LAD. That seemed to a bifurcating lesion of the diagonal but subsequently patient had a cardiac arrest with ventricular tachycardia and fibrillation. He required CPR and cardi oversion and epinephrine. Subsequent cardiac catheterization showed acute thrombosis of the stent. Patient had repeat intervention. Patient is alert and oriented. Doesn't appear to be in acute distress. Patient had procedure from the both wrists. Puncture site seemed to be stable. Lungs are clear. Heart is regular. He is on IV amiodarone drip. His echo Cardigan showed an ejection fraction of 35-40%. Anteroapical hypokinesia noted and anteroseptal. We'll continue current medical therapy with beta blockers, SAVANNAH inhibitor. I will add small dose of Aldactone. Increase activity as tolerated. Further recommendations depend upon clinical course. May require LifeVest before discharge. Also may continue by mouth amiodarone. 12/18/2020:. Patient seemed to be stable since yesterday. No arrhythmias. No complains of any chest pain or shortness of breath. The dose of the beta blo cker was increased. His blood pressure is better controlled. Lungs are clear. Heart is regular. Patient is being transferred to telemetry unit. Patient to be constricted for LifeVest. If stable, patient could be discharged home tomorrow after he has his LifeVest arrangements are made. Follow-up with Dr. Ibarra Objective - Vital Signs Vital signs: Vital Signs Temp 98.6 F 12/18/20 16:15 Pulse 81 12/18/20 16:15 Resp 16 12/18/20 16:15 BP 123/62 12/18/20 16:15 Pulse Ox 96 12/18/20 16:15 Intake & Output 12/17/20 12/18/20 12/18/20 18:59 06:59 18:59 Intake Total 1130 1139.449 343 Output Total 1000 600 200 Balance 130 539.449 143 Weight 123.1 kg 121.5 kg Intake: IV 900 900 225 .9 900 900 225 Intake, IV Titration 239.449 Amount Amiodarone 450 mg In 239.449 Dextrose 5% in Water 250 ml @ 0.5 MG/MIN 16.667 mls/hr IV .Q15H [facility] Rx#: [id number] Oral 230 118 Output: Urine 1000 600 200 Other: Voiding Method Toilet Toilet Toilet # Voids 1 1 1 # Bowel Movements 1 1 - Exam GENERAL EXAM: Patient is alert and oriented and doesn't appear to be in any acute distress HEENT: Normocephalic. Normal reaction of pupils, equal size, normal range of extraocular motion. No erythema or exudates in the throat. NECK: No masses, no nuchal rigidity. CHEST: No chest wall deformity. LUNGS: Equal air entry with no crackles or wheeze. HEART: S1 and S2 normal with no audible mumurs or gallops. Regular rhythm, femorals equal on both sides.. ABDOMEN: No hepatosplenomegaly, normal bowel sounds, no guarding or rigidity. SKIN: No rashes CENTRAL NERVOUS SYSTEM: No focal deficits. EXTREMITIES: No cyanosis, clubbing or edema. - Labs CBC & Chem 7: 12/18/20 02:55 12/18/20 02:55 Labs: Abnormal Lab Results - Last 24 Hours (Table) 12/17/20 12/18/20 12/18/20 Range/Units 20:20 02:55 02:55 WBC 14.7 H (3.8-10.6) k/uL Sodium 134 L (137-145) mmol/L BUN 7 L (9-20) mg/dL Glucose 165 H (74-99) mg/dL POC Glucose (mg/dL) 199 H (75-99) mg/dL Triglycerides 167 H (<150) mg/dL LDL Cholesterol, Calc 118 H (0-99) mg/dL HDL Cholesterol 35 L (40-60) mg/dL 12/18/20 12/18/20 12/18/20 Range/Units 06:46 11:48 17:01 WBC (3.8-10.6) k/uL Sodium (137-145) mmol/L BUN (9-20) mg/dL Glucose (74-99) mg/dL POC Glucose (mg/dL) 171 H 168 H 153 H (75-99) mg/dL Triglycerides (<150) mg/dL LDL Cholesterol, Calc (0-99) mg/dL HDL Cholesterol (40-60) mg/dL Assessment and Plan (1) Cardiac arrest Current Visit: Yes Status: Acute Code(s): I46.9 - CARDIAC ARREST, CAUSE UNSPECIFIED SNOMED Code(s): 383847399 (2) STEMI (ST elevation myocardial infarction) Current Visit: Yes Status: Acute Code(s): I21.3 - ST ELEVATION (STEMI) MYOCARDIAL INFARCTION OF [facility] SITE SNOMED Code(s): 02044362 (3) Coronary stent thrombosis Current Visit: Yes Status: Acute Code(s): T82.867A - THROMBOSIS DUE TO CARDIAC PROSTH DEV/GRFT, INITIAL ENCOUNTER SNOMED Code(s): 322952647 (4) Cardiomyopathy Current Visit: Yes Status: Acute Code(s): I42.9 - CARDIOMYOPATHY, UNSPECIFIED SNOMED Code(s): 97137770 Plan: Stable. Transfer to telemetry unit. Increase activity as tolerated. Possible discharge within next 24 hours. Arrangements for LifeVest
[2020-12-18 19:57] LABS: Glucose,Whole Blood 161 mg/dL (75-99)
[2020-12-18] MEDS: ATORVASTATIN 80 MG TAB PO SCH (21:00)
[2020-12-18] MEDS: NICOTINE 21MG/24HR PATCH TRANSDERM SCH (21:01)
[2020-12-18] MEDS: ACETAMINOPHEN TAB 325 MG TAB PO PRN (23:18)
[2020-12-19] MEDS: SODIUM CHLORIDE 0.9% 1,000 ML IV SCH (04:10)
[2020-12-19] MEDS: ACETAMINOPHEN TAB 325 MG TAB PO PRN (06:18)
[2020-12-19] MEDS: INSULIN ASPART (NovoLOG) 100 UNIT/ML VIAL SQ SCH (06:19)
[2020-12-19 06:33] LABS: Glucose,Whole Blood 174 mg/dL (75-99)
[2020-12-19 08:21] VITALS: BP 123/66; PULSE 93; RESP 18; TEMP 99.2
[2020-12-19] MEDS: HEPARIN SODIUM,PORCINE/PF 5,000 UNIT/0.5 ML SYRINGE SQ SCH (08:21)
[2020-12-19] MEDS: METOPROLOL TARTRATE 50 MG TAB PO SCH (08:21)
[2020-12-19] MEDS: PRASUGREL 10 MG TAB PO SCH (08:21)
[2020-12-19] MEDS: SPIRONOLACTONE 25 MG TAB PO SCH (08:21)
[2020-12-19] MEDS: lisinopriL 10 MG TAB PO SCH (08:21)
[2020-12-19] MEDS: ASPIRIN 81 MG PO SCH (08:21)
[2020-12-19] MEDS: NICOTINE 21MG/24HR PATCH TRANSDERM SCH (12:18)
[2020-12-19 12:33] LABS: Glucose,Whole Blood 185 mg/dL (75-99)
--- NOTE | 2020-12-19 14:04 | P.PN ---
Subjective Patient is a pleasant 45-year-old male with history of diabetes mellitus type II, hyperlipidemia, tobacco abuse with presented with chest pain and found to have anterior lateral STEMI and therefore was transferred from [facility] to [facility] patient underwent heart catheterization which showed bifurcation mid LAD and diagonal 95% stenosis 12/16/2020. He underwent angioplasty of the diagonal branch and eventual to stent approach with successful stenting of the LAD however the diagonal branch was compromised and unable to rewire despite multiple attempts. Therefore patient did have some lateral ST elevations throughout the case. He was transferred to ICU and unfortunately underwent ventricular tachycardia/V. fib arrest with successful brief CPR, epinephrine and cardioversion. His echocardiogram showed an ejection fraction of 35-40%. Anteroapical hypokinesia noted and anteroseptal. 12/17/20- Patient underwent repeat cardiac cath- acute LAD stent thrombosis s/p successful PCI of proximal edge of mid LAD 12/19/20: Patient seen and examined at bedside, no acute distress. BP 123/66, heart rate 93, afebrile, 96% on room air patient currently being maintained on aspirin 81 mg daily, atorvastatin 80 mg nightly, lisinopril 10 mg daily, spironolactone 12.5 mg daily, Brilinta 90 mg twice a day, Lopressor 50 mg twice a day. GENERAL: Well-appearing, well-nourished and in no acute distress. NECK: Supple without JVD or thyromegaly. LUNGS: Breath sounds clear to auscultation bilaterally. Respiration equal and unlabored. No wheezes, rales or rhonchi. HEART: Regular rate and rhythm without murmurs, rubs or gallops. S1 and S2 heard. EXTREMITIES: Normal range of motion, no edema. No clubbing or cyanosis. Peripheral pulses intact. Left radial clean dry intact, 2+ pulses. Right radial site clean dry intact 2+ pulses ASSESSMENT Anterolateral STEMI s/p PCI LAD Diabetes mellitus type 2 Hyperlipidemia Tobacco abuse Family history of coronary artery disease Obesity BMI 42 PLAN: From cardiology perspective, patient is stable for discharge home. Patient to follow up with Dr. Ibarra outpatient within 1 week. Continue dual antiplatelet therapy, lisinopril, spironolactone, statin, beta ric Objective - Vital Signs Vital signs: Vital Signs Temp 99.2 F 12/19/20 08:17 Pulse 93 12/19/20 08:17 Resp 18 12/19/20 08:17 BP 123/66 12/19/20 08:17 Pulse Ox 96 12/19/20 08:17 Intake & Output 12/18/20 12/19/20 12/19/20 18:59 06:59 18:59 Intake Total 343 Output Total 200 2 Balance 143 -2 Weight 117.9 kg Intake: IV 225 .9 225 Oral 118 Output: Urine 200 2 Other: Voiding Method Toilet Toilet # Voids 1 # Bowel Movements 1 - Labs CBC & Chem 7: 12/18/20 02:55 12/18/20 02:55 Labs: Abnormal Lab Results - Last 24 Hours (Table) 12/18/20 12/18/20 12/18/20 Range/Units 11:48 17:01 19:55 POC Glucose (mg/dL) 168 H 153 H 161 H (75-99) mg/dL 12/19/20 Range/Units 05:58 POC Glucose (mg/dL) 174 H (75-99) mg/dL
--- NOTE | 2020-12-19 19:57 | P.DS ---
Providers Date of admission: 12/16/20 20:55 Expected date of discharge: 12/19/20 Attending physician: Fernando Kaiser MD Consults: 12/16/20 23:59 Consult Physician Routine Consulting Provider: Cardiology Claire Consult Reason/Comments: Post Interventional patient Do you want consulting provider notified?: Already Contacted 12/17/20 01:55 Consult Physician Routine Consulting Provider: Cardiology Claire Consult Reason/Comments: Post Interventional patient Do you want consulting provider notified?: Already Contacted Primary care physician: Stated None Hospital Course: Discharge Diagnosis: ST segment elevated myocardial infarction status post PCI to the LAD, in-stent thrombus, V. fib arrest, ischemic cardiomyopathy with ejection fraction 35-40% Diabetes mellitus type 2 well controlled Hypertension Dyslipidemia Leukocytosis Morbid obesity with BMI of 43.8 Social stressors Hospital Course: Bennett is a 45 yo male DM, HLD, and obesity who presented from [facility] due to STEMI in V2-V6. He went emergently to the [facility] and had a stent to the LAD. He was transferred to the ICU and had a V fib arrest shocked X 2, and epi with ROSC. He was started on amio gtt and taken back to the [facility] where he was noted to have acute in stent thrombosis and was started on aggrastat. He return to the ICU and amio gtt was continued. He continue to do well and complete the amio gtt and aggrastat. His echo showed diffuse hypokinesis with EF 35-40% and he was started on metoprolol, lisinopril, and aldactone. He maintained normal sinus rhythm. Hemoglobin A1c was 7.8 and due to his lack of insurance he was started on glipizide which is suboptimal secondary to his known coronary artery disease however would be an affordable option and the benefits of decreasing hemoglobin A1c outweigh the risks of initiation of glipizide. He continued to do well and was determined stable for discharge home. Follow-up: Complicating factors no insurance, follow up with Dr. Ibarra in 1 week, establish care with Dr. Brown, all medications listed below are new with the exception of metformin. Patient seen and examined at bedside. Denies any chest pain, no shortness of breath, still having some sternal discomfort with movement, no swelling Vital signs reviewed and stable. General: non toxic, no distress, appears at stated age, obese Derm: warm, dry Head: atraumatic, normocephalic, symmetric Eyes: EOMI, no lid lag, anicteric sclera Mouth: no lip lesion, mucus membranes moist Cardiovascular: S1S2 reg, no murmur, positive posterior tibial pulse bilateral, Lungs: CTA bilateral, no rhonchi, no rales , no accessory muscle use Abdominal: soft, nontender to palpation, no guarding, no appreciable organomegaly Ext: no gross muscle atrophy, no edema, no contractures Neuro: CN II-XI grossly intact, no focal neuro deficits Psych: Alert, oriented, appropriate affect A total of 35 minutes of time were spent preparing this complex discharge summary . Plan - Discharge Summary Discharge Rx Participant: Yes New Discharge Prescriptions: New Aspirin 81 mg PO DAILY #30 tab glipiZIDE [Glucotrol] 5 mg PO AC-BRKFST #30 tab Atorvastatin [Lipitor] 80 mg PO HS #30 tab lisinopriL [Zestril] 10 mg PO DAILY #30 tab Spironolactone [Aldactone] 12.5 mg PO DAILY #30 tab Ticagrelor [Brilinta] 90 mg PO BID #60 tab Metoprolol Tartrate [Lopressor] 50 mg PO BID #60 tab Continue [place] Cinnamon Supplement 1 cap PO DAILY metFORMIN HCL 500 mg PO BID #60 tab Discontinued Turmeric Root Extract [Turmeric] 500 mg PO DAILY Discharge Medication List [place] Cinnamon Supplement 1 cap PO DAILY 12/17/20 [History] Aspirin 81 mg PO DAILY #30 tab 12/19/20 [Rx] Atorvastatin [Lipitor] 80 mg PO HS #30 tab 12/19/20 [Rx] Metoprolol Tartrate [Lopressor] 50 mg PO BID #60 tab 12/19/20 [Rx] Spironolactone [Aldactone] 12.5 mg PO DAILY #30 tab 12/19/20 [Rx] Ticagrelor [Brilinta] 90 mg PO BID #60 tab 12/19/20 [Rx] glipiZIDE [Glucotrol] 5 mg PO AC-BRKFST #30 tab 12/19/20 [Rx] lisinopriL [Zestril] 10 mg PO DAILY #30 tab 12/19/20 [Rx] metFORMIN HCL 500 mg PO BID #60 tab 12/19/20 [Rx] Follow up Appointment(s)/Referral(s): Nathen Brown MD [REFERRING] - 12/27/20 4:00 pm (will self pay arrive at 3:30 office will send new patient paper work in mail to [place] Address) Nahum Ibarra DO [STAFF PHYSICIAN] - 12/23/20 2:45 pm [facility] [NON-STAFF] - 1 Week Patient Instructions/Handouts: Heart Attack (DC), Left Heart Catheterization (DC), Heart Healthy Diet (DC) Activity/Diet/Wound Care/Special Instructions: Activity: as tolerated Diet: heart healthy, carb consistent Test Blood sugar once daily for the next week, make a list Discharge Disposition: HOME SELF-CARE
== END 2020-12-19 12:38 | disposition home or self-care (01) | DRG 246 ==
LOC: 2SICU 20:55 → 3SCARD 12-18 12:22
PROVIDERS: ADMIT Internal Medicine; ATTEND Internal Medicine
PROC: 4A023N7 Measurement of Cardiac Sampling and Pressure, Left Heart, Percutaneous Approach (ICD-10-PCS; principal; 2020-12-16 20:58)
PROC: 027037Z Dilation of Coronary Artery, One Artery with Four or More Drug-eluting Intraluminal Devices, Percutaneous Approach (ICD-10-PCS; principal; 2020-12-16 20:58)
PROC: B2111ZZ Fluoroscopy of Multiple Coronary Arteries using Low Osmolar Contrast (ICD-10-PCS; principal; 2020-12-16 20:58)
PROC: B2111ZZ Fluoroscopy of Multiple Coronary Arteries using Low Osmolar Contrast (ICD-10-PCS; 2020-12-17 00:50)
PROC: 027034Z Dilation of Coronary Artery, One Artery with Drug-eluting Intraluminal Device, Percutaneous Approach (ICD-10-PCS; 2020-12-17 00:50)
PROC: 4A023N7 Measurement of Cardiac Sampling and Pressure, Left Heart, Percutaneous Approach (ICD-10-PCS; 2020-12-17 00:50)
PROC: 5A12012 Performance of Cardiac Output, Single, Manual (ICD-10-PCS; 2020-12-17 00:50)
DX: I21.09 ST elevation (STEMI) myocardial infarction involving other coronary artery of anterior wall (principal); I46.2 Cardiac arrest due to underlying cardiac condition; I49.01 Ventricular fibrillation; I47.2 Ventricular tachycardia; T82.867A Thrombosis due to cardiac prosthetic devices, implants and grafts, initial encounter; Z68.41 Body mass index [BMI] 40.0-44.9, adult; D72.829 Elevated white blood cell count, unspecified; E11.9 Type 2 diabetes mellitus without complications; E66.01 Morbid (severe) obesity due to excess calories; E78.5 Hyperlipidemia, unspecified; F17.210 Nicotine dependence, cigarettes, uncomplicated; I10 Essential (primary) hypertension; I25.10 Atherosclerotic heart disease of native coronary artery without angina pectoris; I25.5 Ischemic cardiomyopathy; Y83.1 Surgical operation with implant of artificial internal device as the cause of abnormal reaction of the patient, or of later complication, without mention of misadventure at the time of the procedure; Z79.82 Long term (current) use of aspirin; Z82.49 Family history of ischemic heart disease and other diseases of the circulatory system; Z83.3 Family history of diabetes mellitus
CPT/HCPCS: 71045; 80048; 80053; 80061; 83036; 83735; 84484; 85025; 85027; 85347; 85610; 85730; 92978; 93306; 93454; 93458

== ENCOUNTER → 2023-01-29 | Outpatient (CLI) | payer BC, OTHER ==
--- NOTE | 2023-01-29 14:19 | P.SLEEP ---
History of Present Illness H&P Date: 01/29/23 This is a 47-year-old male patient who is coming in for a sleep apnea evaluation. The patient's has multiple medical problems and comorbidities. He had a myocardial infarction/event that the young age and the patient was given a total of 5 stents. He is known to have diabetes mellitus, and hyperlipidemia and is a chronic smoker. Note that his cardiac vascular system is currently stable. 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 Noted the patient has symptoms to indicate sleep apnea including snoring and sleep fragmentation. The patient goes to bed at around 10 PM wakes up 6:30 AM in the morning. Does not take any naps during the day. He feels fatigued and tired during the day. The patient has lost weight around 25 pounds over the past one year. She is trying to stay healthy because of his cardiac disease. No history of any episodes of falling sleep while driving due to drowsiness or sleepiness. No Restasis and lower extremities. No issues with chronic pain. No issues with nighttime heartburn chest pain or shortness of breath. 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 Currently is working in lumbar [employer] and he is doing much better. He states that he feels well as long as he is quite busy and preoccupied. Review of Systems Constitutional: Reports weight loss Eyes: denies as per HPI, denies blurred vision, denies bulging eye, denies decreased vision, denies diplopia, denies discharge, denies dry eye, denies irritation, denies itching, denies pain, denies photophobia, denies loss of peripheral vision, denies loss of vision, denies tunnel vision/blind spots Ears: deny: decreased hearing, ear discharge, earache, tinnitus Ears, nose, mouth and throat: Reports as per HPI Breasts: absent: as per HPI, gynecomastia Cardiovascular: Reports as per HPI Respiratory: Reports snoring Gastrointestinal: Reports as per HPI, Reports constipation Musculoskeletal: Reports as per HPI Musculoskeletal: absent: ankle pain, ankle stiffness, ankle swelling Integumentary: Reports as per HPI Neurological: Reports as per HPI Psychiatric: Reports as per HPI Endocrine: Reports as per HPI, Reports fatigue, Reports weight change Hematologic/Lymphatic: Reports as per HPI Allergic/Immunologic: Reports as per HPI Past Medical History Past Medical History: No Reported History, Coronary Artery Disease (CAD), Heart Failure (chronic systolic heart failure), Diabetes Mellitus, Hyperlipidemia History of Any Multi-Drug Resistant Organisms: None Reported Past Surgical History: Heart Catheterization With Stent, Orthopedic Surgery Additional Past Surgical History / Comment(s): foot/ankle bone repair Past Anesthesia/Blood Transfusion Reactions: No Reported Reaction Past Psychological History: No Psychological Hx Reported Past Alcohol Use History: Occasional Past Drug Use History: None Reported - Past Family History family Additional Family Medical History / Comment(s): premature CAD in his father at 50 of heart attack Medications and Allergies Home Medications Medication Instructions Recorded Confirmed Type [place] Cinnamon Supplement 1 cap PO DAILY 12/17/20 12/17/20 History Aspirin 81 mg PO DAILY #30 tab 12/19/20 Rx Atorvastatin [Lipitor] 80 mg PO HS #30 tab 12/19/20 Rx Metoprolol Tartrate [Lopressor] 50 mg PO BID #60 tab 12/19/20 Rx Spironolactone [Aldactone] 12.5 mg PO DAILY #30 tab 12/19/20 Rx Ticagrelor [Brilinta] 90 mg PO BID #60 tab 12/19/20 Rx glipiZIDE [Glucotrol] 5 mg PO AC-BRKFST #30 tab 12/19/20 Rx lisinopriL [Zestril] 10 mg PO DAILY #30 tab 12/19/20 Rx metFORMIN HCL 500 mg PO BID #60 tab 12/19/20 Rx Allergies Allergy/AdvReac Type Severity Reaction Status Date / Time No Known Allergies Allergy Verified 12/17/20 10:07 Physical Exam Vitals: patient's blood pressure is 105/73 with a pulse of 77 and a respiration of 16 and the temperature is 98.2 with a pulse ox of 97% on room air. BMI is 47.3. Weight is 248. Size of the neck is more than 20 inches. The patient appeared well nourished and normally developed. Vital signs as documented. Head exam is unremarkable. No scleral icterus or corneal arcus noted. Neck is without jugular venous distension, thyromegaly, or carotid bruits. Carotid upstrokes are brisk bilaterally. Lungs are clear to auscultation and percussion. Cardiac exam reveals the PMI to be normally sized and situated. the patient has significant crowding of the posterior oropharynx with a Mallampati class IVRhythm is regular. First and second heart sounds normal. No murmurs, rubs or gallops. Abdominal exam reveals normal bowel sounds, no masses, no organomegaly and no aortic enlargement. Extremities are nonedematous and both femoral and pedal pulses are normal.Examination of the skin revealed no evidence of significant rashes, suspicious appearing nevi or other concerning lesions.Neurologically, the patient is awake and alert and the patient does not have any focal neurological deficit. Cranial nerves are essentially intact. Assessment and Plan Plan: chronic hypersomnia and fatigue, [place] score is currently at 3 Loud snoring Obesity with a BMI of 47.4 Coronary artery disease with previous coronary intervention and stenting Chronic systolic heart failure which is well compensated for now Diabetes mellitus type 2 Hyperlipidemia Chronic anxiety Chronic back pain Plan High likelihood for obstructive sleep apnea. The patient will be set up for a screening polysomnogram. 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 Encouraged to lose more weight. Maintain regular sleep schedule. Abdomen good sleep hygiene measures. We'll continue to follow and make further recommendations based on the results of the sleep study. Sleep Note - Sleep Note Sleep Note: Temperature: Pulse Rate: Respiratory Rate: Blood Pressure: SpO2: Height: Weight: BMI: Neck Circumference:
== END ==
LOC: 3 N SLEEP 12:59
PROVIDERS: ATTEND Internal Medicine Critical Care Medicine
DX: R06.83 Snoring (principal); R53.83 Other fatigue; E66.9 Obesity, unspecified; F17.200 Nicotine dependence, unspecified, uncomplicated; I25.10 Atherosclerotic heart disease of native coronary artery without angina pectoris; E78.5 Hyperlipidemia, unspecified; F41.9 Anxiety disorder, unspecified; G89.29 Other chronic pain; I50.22 Chronic systolic (congestive) heart failure; E11.9 Type 2 diabetes mellitus without complications; Z79.84 Long term (current) use of oral hypoglycemic drugs; Z68.42 Body mass index [BMI] 45.0-49.9, adult
CPT/HCPCS: 99211

== ENCOUNTER → 2023-02-25 | Outpatient (CLI) | payer OTHER ==
[2023-02-25 11:17] LABS: ALT 39 U/L (10-49); AST 25 U/L (14-35); Albumin 4.2 d/dL (3.8-4.9); Alkaline Phosphatase 72 U/L (41-126); BUN/Creat Ratio 14.88 Ratio (12.00-20.00); Blood Urea Nitrogen 11.9 mg/dL (9.0-27.0); Calcium 9.6 mg/dL (8.7-10.3); Carbon Dioxide 27.3 mmol/L (21.6-31.8); Chloride 102 mmol/L (96-109); Chol/HDL Ratio 3.78 Ratio; Glucose 115 mg/dL (70-110); LDL Cholesterol,Calculated 53.7 mg/dL (0.0-131.0); Potassium 4.8 mmol/L (3.5-5.5); Sodium 140 mmol/L (135-145); Total Bilirubin 0.2 mg/dL (0.3-1.2); Total Protein 7.2 d/dL (6.2-8.2)
[2023-02-25 11:53] LABS: Basophils # (A) 0.08 X 10*3/uL (0.00-0.10); Basophils % (A) 0.8 %; Eosinophils # (A) 0.33 X 10*3/uL (0.04-0.35); Eosinophils % (A) 3.4 %; HGB 16.3 d/dL (12.0-15.0); Lymphocytes % (A) 23.6 %; MCH 30.5 pg (27.0-32.0); MCHC 32.6 d/dL (32.0-37.0); MCV 93.6 FL (80.0-97.0); Monocytes # (A) 0.79 X 10*3/uL (0.20-1.00); Monocytes % (A) 8.1 %; NRBC Per 100 WBC 0 X 10*3/uL (0.00-0.01); Neutrophils % (A) 63.6 %; Platelet Count 282 X 10*3/uL (140-440); RBC 5.34 X 10*6/uL (4.40-5.60); RDW 13.6 % (11.5-14.5); WBC 9.75 X 10*3/uL (4.50-10.00)
== END | disposition home or self-care (01) ==
LOC: LABWHC1 07:27
PROVIDERS: ATTEND Internal Medicine
DX: E11.65 Type 2 diabetes mellitus with hyperglycemia (principal)
CPT/HCPCS: 36415; 80053; 80061; 85025